=== PATIENT | female | born 1945 | race Caucasian/White ===

== ENCOUNTER 2021-12-09 10:13 | Outpatient (CLI) | payer MEDICARE, SELFPAY ==
--- NOTE | 2021-12-09 10:22 | FL_ITS ---
WS: [id number] Exam: FL upperGI air smallbowel ser* Date/Time of Exam: 12/09/2021 10:27 AM Reason For Exam: EARLY SATIETY/DECREASED APPETITE Fluoroscopy time: minutes # of spot films: 16 preliminary abdominal survey is unremarkable. Swallowing function was normal. The esophagus is smooth in contour with normal motility. No hiatal he rnia was noted. Mild esophageal spasm. The stomach is freely distensible. No sign of gastric mass or ulceration. The duodenal bulb is smooth in contour. No sign of duodenal ulcer. Small bowel follow-through. Barium courses through the small bowel without obstruction. There are sev eral small diverticuli of the duodenal C-loop. Small bowel mucosal pattern is otherwise unremarkable. No sign of bowel loop herniation or displacement. Barium noted in the right colon at 1 hour 30 minut es indicating normal transit time. FL/FL upperGI air smallbowel ser* IMPRESSION: 1. The stomach and duodenal bulb were unremarkable. No sign of gastric mass. No sign of peptic ulcer disease. 2. Small bowel follow-through demonstrates patent small bowel. No sign of bowel loop herniation or displacement. Normal transit time. 3. 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 4. Mild esophageal spasm.
== END 2021-12-09 10:14 | disposition home or self-care (01) ==
LOC: RAD 10:17
PROVIDERS: PCP Family Medicine; Visit Provider Surgery Vascular Surgery
DX: K57.10 Diverticulosis of small intestine without perforation or abscess without bleeding (principal); K22.4 Dyskinesia of esophagus; R68.81 Early satiety; R63.0 Anorexia
CPT/HCPCS: 74246; 74248